=== PATIENT | female | born 1985 | race Caucasian/White ===

== ENCOUNTER 2024-10-04 17:19 | Emergency (ER) | payer OTHER, SELFPAY ==
[2024-10-04 17:20] VITALS: BP 136/90; PULSE 105; RESP 18; TEMP 36.2; O2SAT 99; BMI 23.3
--- NOTE | 2024-10-04 17:55 | ED.OVERDOSE ---
HPI - Overdose <Tayler Daniel PA-C - Last Filed: 10/04/24 18:30> General Chief Complaint: Toxicology Problem Stated Complaint: Possible Overdose Time Seen by Provider: 10/04/24 17:55 Source: patient and EMS Mode of arrival: Ambulatory History of Present Illness HPI Narrative: 39-year-old female brought in by BLS ambulance for those described as a possible overdose. Apparently she smoked some fentanyl at 4:45 p.m. her friend that was with her thought that she was unconscious and attempted to arouse her and performed some chest compressions. The patient states she recalls the entire incident and never passed out. She agreed to transportation however and since ?she is here she agreed to be evaluated?. She states she does carry naloxone just in case, she is denying any pain, headache, recent illness or changes in overall health. She reports her last meal however was last night she ate some pizza, she states she has not slept in a couple of days due to work and also being in between housing situations. She states she is currently with her friend but some of her belongings are with her ex. She does feel safe however. Her last menstrual cycle began this week she is on day 2 or 3. She is denying any lightheadedness, headache, chest pain, difficulty breathing. She does endorse being a little thirsty and a little hungry. All other systems are reviewed and are negative. Related Data Home Medications Medication Instructions Recorded Confirmed ASCORBIC ACID (VITAMIN C) 100 mg PO Q DAY ##0 07/01/11 Fish Oil (#OMEGA-3) 1,000 mg PO Q DAY ##0 07/01/11 Methylprednisolone 4 mg PO BID ##0 07/01/11 (#METHYLPREDNISOLONE) VITAMIN B COMPLEX 1 cap PO Q DAY ##0 07/01/11 cetirizine 10 mg tablet 10 mg PO Q HS ##0 07/01/11 ibuprofen 200 mg tablet (Advil) 200 mg PO 2 Q4H ##0 07/01/11 oxycodone-acetaminophen 5 mg-325 1 tab PO Q 4H ##0 07/01/11 mg tablet (Percocet) Previous Rx's Medication Instructions Recorded GABAPENTIN (#NEURONTIN) 300 mg PO HS ##30 07/01/11 tramadol 50 mg tablet 50 mg PO QID ##30 07/01/11 Allergies Allergy/AdvReac Type Severity Reaction Status Date / Time GENERIC: NKA - NO KNOWN Allergy Unknown Uncoded 01/21/18 12:03 ALLERGIES Review of Systems <Tayler Daniel PA-C - Last Filed: 10/04/24 18:30> Review of Systems Narrative: All other systems reviewed and are negative. Patient History <Tayler Daniel PA-C - Last Filed: 10/04/24 18:30> Social History Smoking Status: Current every day smoker Smoking Status: Current every day smoker tobacco type: cigarettes Exam <Tayler Dnaiel PA-C - Last Filed: 10/04/24 18:30> Initial Vital Signs Initial Vital Signs: Vital Signs Temperature 97.2 F L 10/04/24 17:20 Pulse Rate 105 H 10/04/24 17:20 Respiratory Rate 18 10/04/24 17:20 Blood Pressure 136/90 10/04/24 17:20 Pulse Oximetry 99 10/04/24 17:20 Oxygen Delivery Method Room Air 10/04/24 17:20 Vital signs reviewed and are normal. Pulse rate slightly tachycardic at 105 per minute, rechecked it remains 100 per minute radially. Strong and regular. Const General: cooperative, comfortable, well developed and No acute distress HENMT Head: normal to inspection and atraumatic Ears: hearing grossly normal bilaterally and external ears normal Nose: external nose normal and nares normal Face and sinus: normal facial exam and face symmetric Mouth: oral mucosae normal, lip normal and tongue normal Teeth and gingiva: dentition normal Eyes Conjunctivae: conjunctivae normal Pupils: PERRL and pupil size bilaterally (In a darkened exam room, equal and reactive to light.) 2 EOM: EOM intact bilaterally and No nystagmus Neck Neck: normal visual inspection and full ROM Resp Effort & Inspection: normal respiratory effort Auscultation: clear to auscultation bilaterally, no rales, no rhonchi and no wheezes Cardio Rate: regular rate Rhythm: regular rhythm GI Inspection: normal to inspection Percussion: normal to percussion Auscultation: normal bowel sounds Skin General: no rashes or lesions noted Neuro Cranial Nerves: No nystagmus <Adilene Cardenas DO - Last Filed: 10/05/24 02:58> Initial Vital Signs Initial Vital Signs: Vital Signs Temperature 97.2 F L 10/04/24 17:20 Pulse Rate 105 H 10/04/24 17:20 Respiratory Rate 18 10/04/24 17:20 Blood Pressure 136/90 10/04/24 17:20 Pulse Oximetry 99 10/04/24 17:20 Oxygen Delivery Method Room Air 10/04/24 17:20 Course <Tayler Daniel PA-C - Last Filed: 10/04/24 18:30> Reevaluation(s) Reevaluation #1: Blood glucose is 179, she was given 2 bottles of water for a total of 1 L, a sandwich, some cheese snacks, granola bar and an Ensure clear. In total she was observed for approximately 2 hours with no change and completely asymptomatic. She states she will call her friend come pick her up. Discussed the case with the attending Dr. Cardenas who is in agreement with treatment/discharge plan. Vital Signs Vital signs: Vital Signs - 8 hr 10/04/24 17:20 Temperature 97.2 F L Pulse Rate 105 H Respiratory Rate 18 Blood Pressure 136/90 Pulse Oximetry 99 Oxygen Delivery Method Room Air <Adilene Cardenas DO - Last Filed: 10/05/24 02:58> Vital Signs Vital signs: Vital Signs - 8 hr 10/04/24 17:20 Temperature 97.2 F L Pulse Rate 105 H Respiratory Rate 18 Blood Pressure 136/90 Pulse Oximetry 99 Oxygen Delivery Method Room Air MDM - Overdose <Tayler Daniel PA-C - Last Filed: 10/04/24 18:30> Lab Data Labs: Point of Care Testing Glucose POC 179 MDM Narrative Medical decision making narrative: Patient self admitted to smoking fentanyl, she recalls the entire incident, she states she was transported in error, but agreed to be evaluated since she is already here. She is completely without clinical complaint. She already has her own naloxone for home use, she agrees to use the [facility] system if she continues to use fentanyl or any other medication or drug, she was given sandwich, she had normal glucose, she was hydrated here and she has called her friend come pick her up. She was ambulated, road tested and she is safe. Red flag warning signs reviewed in detail, please do not hesitate to seek medical attention if anything changes or worsens or you develop any new symptoms or any worrisome symptoms you may also call 911. Naloxone at Discharge Meets criteria for naloxone at discharge?: No <Adilene Cardenas DO - Last Filed: 10/05/24 02:58> Lab Data Labs: Point of Care Testing Glucose POC 179 Discharge Plan Departure Patient Disposition: Home Clinical Impression: Substance use Instructions: DI for Substance Use Disorder Activity Restrictions/Additional Instructions: It was nice to meet you Lakesha, I hope things improve with her housing situation and that you do get some sleep, please stay hydrated, I am glad that you already have naloxone on hand and I encouraged the [facility] system at all times. Your blood sugar was within normal limits. If you have any complaints or have any worrisome symptoms by all means do not hesitate to return here. I hope you have a good holiday season and a good new year. Prescriptions: No Action oxycodone-acetaminophen [Percocet] 5 MG/325 MG tablet 1 tab PO Q 4H Qty: 0 cetirizine 10 MG tablet 10 mg PO Q HS Qty: 0 ibuprofen [Advil] 200 MG tablet 200 mg PO 2 Q4H Qty: 0 ASCORBIC ACID (VITAMIN C) 100 mg PO Q DAY Qty: 0 VITAMIN B COMPLEX 1 cap PO Q DAY Qty: 0 Fish Oil (#OMEGA-3) 1,000 mg PO Q DAY Qty: 0 Methylprednisolone (#METHYLPREDNISOLONE) 4 mg PO BID Qty: 0 GABAPENTIN (#NEURONTIN) 300 mg PO HS Qty: 30 1RF tramadol 50 MG tablet 50 mg PO QID Qty: 30 1RF Referrals: Ivon Amado MD [Primary Care Provider] - Stand Alone Forms: Patient Portal/API/Survey ED Sign-out <Adilene Cardenas DO - Last Filed: 10/05/24 02:58> Cosign ED Attending Cosignature Attestation: I was available for consultation.
[2024-10-04 18:40] VITALS: BP 130/90; PULSE 95; RESP 16; O2SAT 96
== END 2024-10-04 19:10 | disposition home or self-care (01) ==
PROVIDERS: Emergency Provider Physician Assistant Medical; PCP Family Medicine
DX: F11.90 Opioid use, unspecified, uncomplicated (principal); Z59.89 Other problems related to housing and economic circumstances
CPT/HCPCS: 82962; 99282; 99283